=== PATIENT | female | born 1980 | race Asian ===

== ENCOUNTER 2024-10-18 20:06 | Inpatient (IN) | payer MEDICAID, OTHER ==
[~2024-10-18] VITALS: Ht 152.4 cm; Wt 69.9 kg
[2024-10-18 20:52] LABS: HEMATOCRIT. 29.3 % (36.0-48.0); HEMOGLOBIN. 9.4 g/dL (12.0-16.0); MEAN PLATELET VOLUME 8.8 fl (7.4-10.4); PLATELET 114 x1000/uL (130-400); RED BLOOD CELL COUNT 4.21 mill/uL (4.2-5.4); RED CELL DISTRIBUTION WIDTH 14.3 % (11.6-14.6)
[2024-10-18] MEDS: PIPERACILLIN/TAZO 3.375G/50ML 50 ML IV ONE (21:00)
[2024-10-18] MEDS: SODIUM CHLORIDE 0.9% (SEPSIS BOLUS) IV ONE (21:00)
[2024-10-18 21:04] LABS: CREATININE 1.8 mg/dL (0.6-1.0); UREA NITROGEN BLOOD 23 mg/dL (9-23)
[2024-10-18 21:05] LABS: TROPONIN I HIGH SENSITIVITY 11 ng/L (3.0-34)
[2024-10-18 21:06] LABS: ASPARTATE AMINOTRANSFERASE 32 IU/L (<34); BAND% 1.0 % (1.0-6.0); BILIRUBIN DIRECT 0.3 mg/dL (<=3.0); BILIRUBIN TOTAL 0.6 mg/dL (0.1-1.0); LYMPHOCYTES % MANUAL 6.0 % (20.0-60.0); MONOCYTES % MANUAL 13.0 % (2.0-8.0); NEUTROPHILS % MANUAL 80.0 % (45.0-75.0); PLATELET ESTIMATE DECREASED; PROTEIN TOTAL 6.1 g/dL (6.0-8.3)
[2024-10-18 21:15] LABS: INR 1.1
[2024-10-18] MEDS: VANCOMYCIN 1G PREMIX 200 ML IV ONE (22:59)
[2024-10-18] MEDS: NOREPINEPHRINE 8MG/250ML PMX 250 ML IV PRN (23:05)
[2024-10-18] MEDS: SODIUM CHLORIDE 0.9% 1,000 ML IV ONE (23:09)
[2024-10-19] VITALS (62 sets, daily range): BP systolic 75–183; BP diastolic 27–163; PULSE 81–123; RESP 23–43; TEMP 36.9–39.3; O2SAT 97–100
[2024-10-19 00:12] LABS: TROPONIN I HIGH SENSITIVITY 9 ng/L (3.0-34)
[2024-10-19] MEDS: ACETAMINOPHEN 1000MG/100ML 100 ML IV ONE (00:52)
[2024-10-19] MEDS: SODIUM CHLORIDE 0.9% 1,000 ML IV SCH (02:51)
[2024-10-19] MEDS: MIDODRINE HCL 5MG TABLET PO SCH ×2 (02:54→21:10)
[2024-10-19 05:31] LABS: PLATELET 103 x1000/uL (130-400); RED BLOOD CELL COUNT 4.34 mill/uL (4.2-5.4); RED CELL DISTRIBUTION WIDTH 14.5 % (11.6-14.6)
[2024-10-19 05:42] LABS: CREATININE 1.5 mg/dL (0.6-1.0)
[2024-10-19 05:43] LABS: UREA NITROGEN BLOOD 18.0 mg/dL (9-23)
[2024-10-19] MEDS: PIPERACILLIN/TAZO 3.375G/50ML 50 ML IV SCH (06:16)
[2024-10-19] MEDS: ACETAMINOPHEN 325MG TABLET PO PRN (06:43)
[2024-10-19 08:07] LABS: CLARITY URINE TURBID (CLEAR); COLOR URINE YELLOW (YELLOW); GLUCOSE URINE NEGATIVE (NEGATIVE); KETONES URINE NEGATIVE (NEGATIVE); LEUKOCYTE ESTERASE URINE 3+ (NEGATIVE); NITRITE URINE NEGATIVE (NEGATIVE); OCCULT BLOOD URINE 2+ (NEGATIVE); PH URINE 5.5 (4.5-8.0); PROTEIN URINE 1+ (NEGATIVE); SPECIFIC GRAVITY URINE 1.006 (1.005-1.030); UROBILINOGEN URINE 0.2 E.U./dL (0.2-1.0)
[2024-10-19 08:22] LABS: SQUAMOUS EPITHELIAL CELL URINE NONE SEEN /lpf (RARE/1+)
[2024-10-19 08:24] LABS: WBC URINE TNTC /hpf (0-2)
[2024-10-19 08:25] LABS: BACTERIA URINE 1+; YEAST URINE NONE SEEN
[2024-10-19] MEDS: ENOXAPARIN 30MG/0.3ML SYR SUBCUT SCH (09:02)
[2024-10-19] MEDS: PANTOPRAZOLE SODIUM 40 MG/VIAL IV SCH (09:02)
[2024-10-19] MEDS: VANCOMYCIN 750MG/150ML (BAXTER) IV SCH (21:09)
[2024-10-19] MEDS: SODIUM CHLORIDE 0.9% 500 ML IV ONE (21:26)
[2024-10-20] VITALS (60 sets, daily range): BP systolic 75–139; BP diastolic 42–95; PULSE 72–117; RESP 19–46; TEMP 36.9–37.3; O2SAT 94–100
[2024-10-20] MEDS: NOREPINEPHRINE 8MG/250ML PMX 250 ML IV PRN (04:16)
[2024-10-20 05:08] LABS: BG BASE EXCESS -5.8 mmol/L (-2.0-3.0); BG CARBOXYHEMOGLOBIN 0.7 % (0.5-1.5); BG DEOXYHEMOGLOBIN 0.6 % (0.0-5.0); BG FRACTION INSPIRED OXYGEN 40; BG HCO3 ACT 18.0 mmol/L (21.0-28.0); BG METHEMOGLOBIN 0.1 % (0.5-1.5); BG OXYGEN SATURATION 99.4 % (94.0-98.0); BG OXYHEMOGLOBIN 98.6 % (94.0-98.0); BG PCO2 29.6 mmHg (32.0-45.0); BG PH 7.403 (7.350-7.450); BG PO2 161.4 mmHg (83.0-108.0); BG SAMPLE SITE LEFT RADIAL; BG TOTAL HEMOGLOBIN 9.3 g/dL (12.0-16.0); BG VENT MODE MASK - BIPAP; BG VENT RATE 20.0 set
[2024-10-20 05:22] LABS: HEMATOCRIT. 25.3 % (36.0-48.0); HEMOGLOBIN. 8.2 g/dL (12.0-16.0); MEAN PLATELET VOLUME 8.9 fl (7.4-10.4); PLATELET 112 x1000/uL (130-400); RED BLOOD CELL COUNT 3.66 mill/uL (4.2-5.4); RED CELL DISTRIBUTION WIDTH 14.7 % (11.6-14.6)
[2024-10-20 05:48] LABS: CREATININE 1.1 mg/dL (0.6-1.0)
[2024-10-20 05:49] LABS: UREA NITROGEN BLOOD 15.0 mg/dL (9-23)
[2024-10-20] MEDS: VANCOMYCIN 750MG/150ML (BAXTER) IV SCH (11:11)
[2024-10-20 12:46] LABS: BAND% 43.0 % (1.0-6.0); LYMPHOCYTES % MANUAL 2.0 % (20.0-60.0); MONOCYTES % MANUAL 7.0 % (2.0-8.0); NEUTROPHILS % MANUAL 48.0 % (45.0-75.0); PLATELET ESTIMATE DECREASED
[2024-10-20] MEDS ORDERED: MULT-380 PO (21:43)
[2024-10-20] MEDS ORDERED: BENZ1TAB78 PO (21:43)
[2024-10-20] MEDS ORDERED: MELA1TAB17 PO (21:43)
[2024-10-20] MEDS ORDERED: OXYB-52 PO (21:43)
[2024-10-20] MEDS ORDERED: ASCO125T PO (21:43)
[2024-10-20] MEDS ORDERED: CHOL400D7 MT (21:43)
[2024-10-20] MEDS ORDERED: DOCU-422 MT (21:43)
[2024-10-20] MEDS ORDERED: DULO20CA18 MT (21:43)
[2024-10-20] MEDS ORDERED: RISP-28 PO (21:43)
[2024-10-20] MEDS ORDERED: FERR325T30 PO (21:43)
[2024-10-20] MEDS ORDERED: IBUP-2029 PO (21:43)
[2024-10-20] MEDS ORDERED: TRAZ-252 MT (21:43)
[2024-10-20] MEDS ORDERED: DIVA500T51 MT (21:43)
[2024-10-21] VITALS (61 sets, daily range): BP systolic 84–160; BP diastolic 50–141; PULSE 75–156; RESP 20–53; TEMP 36.9–37.2; O2SAT 92–100
[2024-10-21 05:55] LABS: CREATININE 1.2 mg/dL (0.6-1.0)
[2024-10-21 05:57] LABS: UREA NITROGEN BLOOD 15.0 mg/dL (9-23)
[2024-10-21 10:09] LABS: HEMATOCRIT. 26.9 % (36.0-48.0); HEMOGLOBIN. 8.7 g/dL (12.0-16.0); MEAN PLATELET VOLUME 8.2 fl (7.4-10.4); PLATELET 173 x1000/uL (130-400); RED BLOOD CELL COUNT 3.94 mill/uL (4.2-5.4); RED CELL DISTRIBUTION WIDTH 14.5 % (11.6-14.6)
[2024-10-21] MEDS: DIVALPROEX SODIUM 500MG ER TABLET PO SCH (10:39)
[2024-10-21] MEDS: DULOXETINE HCL 20MG DR CAPSULE PO SCH (10:40)
[2024-10-21 11:20] LABS: BAND% 33.0 % (1.0-6.0); EOSINOPHILS % MANUAL 1.0 % (0.0-5.0); LYMPHOCYTES % MANUAL 6.0 % (20.0-60.0); MONOCYTES % MANUAL 13.0 % (2.0-8.0); MYELOCYTES % 1.0 % (0-0); NEUTROPHILS % MANUAL 46.0 % (45.0-75.0); PLATELET ESTIMATE NORMAL
[2024-10-21] MEDS: RISPERIDONE 1MG TABLET PO SCH (12:24)
[2024-10-21] MEDS: DIGOXIN 500MCG/2ML AMP IV NR (15:56)
[2024-10-21] MEDS: ENOXAPARIN 40MG/0.4ML SYR SUBCUT SCH (15:56)
[2024-10-21] MEDS ORDERED: AMIODARONE HCL 150 MG in DEXT 5% WATER 100 ML IV ONE (17:00)
[2024-10-21] MEDS: DIGOXIN 125MCG TABLET PO SCH (17:22)
[2024-10-21] MEDS: AMIODARONE 150MG/100ML PREMIX IV SCH (17:22)
[2024-10-21] MEDS: BENZTROPINE MESYLATE 1MG TABLET PO SCH (20:27)
[2024-10-21] MEDS: TRAZODONE HCL 50MG TABLET PO SCH (20:28)
[2024-10-21] MEDS: ENOXAPARIN 80MG/0.8ML SYR SUBCUT SCH (20:28)
[2024-10-22 07:48] VITALS: BP 106/62; PULSE 82; RESP 18; TEMP 36.7; O2SAT 98
[2024-10-22 07:54] LABS: HEMATOCRIT. 25.3 % (36.0-48.0); HEMOGLOBIN. 8.2 g/dL (12.0-16.0); MEAN PLATELET VOLUME 8.1 fl (7.4-10.4); PLATELET 229 x1000/uL (130-400); RED BLOOD CELL COUNT 3.68 mill/uL (4.2-5.4); RED CELL DISTRIBUTION WIDTH 14.6 % (11.6-14.6)
[2024-10-22 08:09] LABS: CREATININE 1.3 mg/dL (0.6-1.0); UREA NITROGEN BLOOD 17.0 mg/dL (9-23)
[2024-10-22 10:28] LABS: BAND% 26.0 % (1.0-6.0); EOSINOPHILS % MANUAL 1.0 % (0.0-5.0); LYMPHOCYTES % MANUAL 7.0 % (20.0-60.0); METAMYELOCYTES % 1.0 % (0-0); MONOCYTES % MANUAL 8.0 % (2.0-8.0); NEUTROPHILS % MANUAL 57.0 % (45.0-75.0)
[2024-10-22 10:29] LABS: PLATELET ESTIMATE NORMAL
[2024-10-22 11:27] VITALS: BP 105/55; PULSE 106; RESP 19; TEMP 36.9; O2SAT 99
[2024-10-22] MEDS ORDERED: DIGOXIN 500MCG/2ML AMP IV SCH (14:15)
[2024-10-22 16:05] VITALS: BP 109/59; PULSE 99; RESP 20; TEMP 36.6; O2SAT 99
[2024-10-22 20:00] VITALS: BP 111/61; PULSE 98; RESP 19; TEMP 37.2; O2SAT 98
[2024-10-23] VITALS: BP 119/60; PULSE 96; RESP 19; TEMP 37.3; O2SAT 99
[2024-10-23 04:00] VITALS: BP 116/60; PULSE 102; RESP 19; TEMP 36.9; O2SAT 97
[2024-10-23 08:00] VITALS: BP 117/62; PULSE 87; RESP 17; TEMP 36.6; O2SAT 98
[2024-10-23 12:00] VITALS: BP 117/66; PULSE 89; RESP 14; TEMP 36.7; O2SAT 95
[2024-10-23 13:05] LABS: BG BASE EXCESS -2.2 mmol/L (-2.0-3.0); BG CARBOXYHEMOGLOBIN 1.5 % (0.5-1.5); BG DEOXYHEMOGLOBIN 9.5 % (0.0-5.0); BG FRACTION INSPIRED OXYGEN 21; BG HCO3 ACT 22.6 mmol/L (21.0-28.0); BG METHEMOGLOBIN 0.1 % (0.5-1.5); BG OXYGEN SATURATION 90.3 % (94.0-98.0); BG OXYHEMOGLOBIN 88.9 % (94.0-98.0); BG PCO2 38.5 mmHg (32.0-45.0); BG PH 7.386 (7.350-7.450); BG PO2 56.8 mmHg (83.0-108.0); BG SAMPLE SITE RIGHT RADIAL; BG TOTAL HEMOGLOBIN 8.9 g/dL (12.0-16.0); BG VENT MODE ROOM AIR
[2024-10-23 16:00] VITALS: BP 145/75; PULSE 95; RESP 18; TEMP 36.7; O2SAT 100
[2024-10-23 20:00] VITALS: BP 132/70; PULSE 105; RESP 18; TEMP 36.3; O2SAT 100
[2024-10-24] VITALS: BP 121/64; PULSE 94; RESP 19; TEMP 37.1; O2SAT 90
[2024-10-24 04:00] VITALS: BP 126/58; PULSE 94; RESP 19; TEMP 36.5; O2SAT 92
[2024-10-24 08:00] VITALS: BP 141/76; PULSE 95; RESP 19; TEMP 36.7; O2SAT 91
[2024-10-24 12:00] VITALS: BP 128/59; PULSE 58; RESP 17; TEMP 36.9; O2SAT 100
[2024-10-24] MEDS ORDERED: IPRATROPIUM/ALBUTEROL 0.5-3(2.5)MG/3ML NEB HHN PRN (15:30)
[2024-10-24 16:00] VITALS: BP 136/78; PULSE 84; RESP 18; TEMP 36.8; O2SAT 99
[2024-10-24 17:05] LABS: BG BASE EXCESS -1.6 mmol/L (-2.0-3.0); BG CARBOXYHEMOGLOBIN 1.4 % (0.5-1.5); BG DEOXYHEMOGLOBIN 3.2 % (0.0-5.0); BG FLOW(L/min) 3.00 L/min; BG FRACTION INSPIRED OXYGEN 32; BG HCO3 ACT 22.8 mmol/L (21.0-28.0); BG METHEMOGLOBIN 0.3 % (0.5-1.5); BG OXYGEN SATURATION 96.7 % (94.0-98.0); BG OXYHEMOGLOBIN 95.1 % (94.0-98.0); BG PCO2 37.1 mmHg (32.0-45.0); BG PH 7.407 (7.350-7.450); BG PO2 88.2 mmHg (83.0-108.0); BG SAMPLE SITE RIGHT RADIAL; BG TOTAL HEMOGLOBIN 8.4 g/dL (12.0-16.0); BG VENT MODE NASAL CANNULA
[2024-10-24 18:47] LABS: HEMATOCRIT. 26.2 % (36.0-48.0); HEMOGLOBIN. 8.3 g/dL (12.0-16.0); MEAN PLATELET VOLUME 7.2 fl (7.4-10.4); PLATELET 504 x1000/uL (130-400); RED BLOOD CELL COUNT 3.77 mill/uL (4.2-5.4); RED CELL DISTRIBUTION WIDTH 14.4 % (11.6-14.6)
[2024-10-24 19:01] LABS: CREATININE 1.1 mg/dL (0.6-1.0); INR 1.0
[2024-10-24 19:02] LABS: UREA NITROGEN BLOOD 13 mg/dL (9-23)
[2024-10-24 19:03] LABS: ASPARTATE AMINOTRANSFERASE 80 IU/L (<34); BILIRUBIN DIRECT 0.4 mg/dL (<=3.0); PHOSPHORUS 3.2 mg/dL (2.5-4.9)
[2024-10-24 19:04] LABS: BILIRUBIN TOTAL 0.8 mg/dL (0.1-1.0); PROTEIN TOTAL 5.8 g/dL (6.0-8.3)
[2024-10-24 19:14] LABS: FOLIC ACID (FOLATE) SERUM 10.21 ng/mL (>5.38)
[2024-10-24 19:18] LABS: VITAMIN B12 SERUM > 2000 pg/mL (211-911)
[2024-10-24 20:00] VITALS: BP 131/83; PULSE 84; RESP 20; TEMP 36.5; O2SAT 100
[2024-10-24 22:43] LABS: BAND% 7.0 % (1.0-6.0); EOSINOPHILS % MANUAL 5.0 % (0.0-5.0); LYMPHOCYTES % MANUAL 10.0 % (20.0-60.0); METAMYELOCYTES % 2.0 % (0-0); MONOCYTES % MANUAL 8.0 % (2.0-8.0); MYELOCYTES % 2.0 % (0-0); NEUTROPHILS % MANUAL 66.0 % (45.0-75.0); PLATELET ESTIMATE INCREASED
[2024-10-25] VITALS: BP 138/70; PULSE 89; RESP 20; TEMP 36.9; O2SAT 100
[2024-10-25 03:53] VITALS: BP 148/65; PULSE 92; RESP 20; TEMP 36.9; O2SAT 98
[2024-10-25 07:13] LABS: BASOPHILS % 0.4 % (0.0-2.0); EOSINOPHILS % 4.2 % (0.0-5.0); HEMATOCRIT. 26.0 % (36.0-48.0); HEMOGLOBIN. 8.4 g/dL (12.0-16.0); LYMPHOCYTES % 13.6 % (20.0-50.0); MEAN PLATELET VOLUME 7.4 fl (7.4-10.4); MONOCYTES % 11.5 % (2.0-8.0); NEUTROPHILS % 70.3 % (40.0-76.0); PLATELET 533 x1000/uL (130-400); RED BLOOD CELL COUNT 3.76 mill/uL (4.2-5.4); RED CELL DISTRIBUTION WIDTH 14.6 % (11.6-14.6)
[2024-10-25 07:23] LABS: CREATININE 1.0 mg/dL (0.6-1.0); UREA NITROGEN BLOOD 11.0 mg/dL (9-23)
[2024-10-25 07:51] VITALS: BP 140/67; PULSE 88; RESP 19; TEMP 36.8; O2SAT 99
[2024-10-25 11:37] VITALS: BP 136/70; PULSE 80; RESP 19; TEMP 36.7; O2SAT 95
[2024-10-25 16:10] VITALS: BP 121/62; PULSE 95; RESP 20; TEMP 36.7; O2SAT 94
[2024-10-25 20:00] VITALS: BP 136/73; PULSE 85; RESP 18; TEMP 37.5; O2SAT 96
[2024-10-26] VITALS: BP 139/67; PULSE 79; RESP 18; TEMP 37.7; O2SAT 98
[2024-10-26 04:00] VITALS: BP 116/68; PULSE 83; RESP 18; TEMP 37.1; O2SAT 97
[2024-10-26 08:28] VITALS: BP 114/60; PULSE 89; RESP 20; TEMP 36.8; O2SAT 97
[2024-10-26 12:07] VITALS: BP 157/72; PULSE 72; RESP 20; TEMP 36.7; O2SAT 96
[2024-10-26] MEDS: MIDODRINE HCL 5MG TABLET PO SCH (13:31)
[2024-10-26] MEDS: LEVOFLOXACIN 500MG TABLET PO SCH (13:33)
[2024-10-26 15:50] VITALS: BP 140/72; PULSE 77; RESP 18; TEMP 36.8; O2SAT 96
[2024-10-26 20:00] VITALS: BP 132/57; PULSE 77; RESP 20; TEMP 37.2; O2SAT 97
[2024-10-27] VITALS: BP 151/64; PULSE 65; RESP 20; TEMP 37; O2SAT 98
[2024-10-27 04:00] VITALS: BP 121/73; PULSE 83; RESP 20; TEMP 37.1; O2SAT 98
[2024-10-27 08:00] VITALS: BP 148/74; PULSE 69; RESP 18; TEMP 37.2; O2SAT 98
[2024-10-27] MEDS ORDERED: LEVO-65 MT (16:53)
[2024-10-27] MEDS ORDERED: APIX5TAB MT (16:56)
[2024-10-27 17:57] VITALS: BP 121/67; PULSE 68; TEMP 98.4; O2SAT 96
== END 2024-10-27 19:02 | disposition home health service (06) | DRG 720 ==
LOC: ER 20:16 → EDBEDREQTM 22:08 → EDBEDREQ 22:08 → ENRESERV 22:21 → MICUSO 22:39 → EDBEDREQSVC 22:42 → EDBEDREQTM 22:44 → ENRESERV 10-19 00:14 → 7WST 10-21 21:44
PROVIDERS: ADMIT Internal Medicine; ATTEND Internal Medicine
PROC: 5A0935A Assistance with Respiratory Ventilation, Less than 24 Consecutive Hours, High Flow/Velocity Cannula (ICD-10-PCS; 2024-10-18)
PROC: 5A09357 Assistance with Respiratory Ventilation, Less than 24 Consecutive Hours, Continuous Positive Airway Pressure (ICD-10-PCS; principal; 2024-10-20)
DX: A41.9 Sepsis, unspecified organism (principal); N17.0 Acute kidney failure with tubular necrosis; J96.00 Acute respiratory failure, unspecified whether with hypoxia or hypercapnia; R65.21 Severe sepsis with septic shock; G93.40 Encephalopathy, unspecified; J18.9 Pneumonia, unspecified organism; E87.1 Hypo-osmolality and hyponatremia; E86.1 Hypovolemia; I48.0 Paroxysmal atrial fibrillation; N39.0 Urinary tract infection, site not specified; B96.89 Other specified bacterial agents as the cause of diseases classified elsewhere; I48.92 Unspecified atrial flutter; D50.9 Iron deficiency anemia, unspecified; F32.A Depression, unspecified; B96.20 Unspecified Escherichia coli [E. coli] as the cause of diseases classified elsewhere; I45.10 Unspecified right bundle-branch block
CPT/HCPCS: 36415; 36600; 71045; 80048; 80076; 80202; 81003; 82375; 82607; 82728; 82746; 82805; 82962; 83540; 83550; 83605; 83735; 83880; 84100; 84145; 84484; 85025; 85027; 87077; 87186; 93005; 93306; 94070; 94660; 94664; 97116; 97162; 97166; 97530; 97535; 98960; 99285; A4606; J0282; J1160; J1650; J2470; J2543; J3373; J3490; J7030; J0131